=== PATIENT | female | born 1960 | race Caucasian/White ===

== ENCOUNTER 2024-05-03 18:36 | Emergency (ER) | payer MEDICARE, OTHER, SELFPAY ==
[2024-05-03 18:47] VITALS: BP 167/74
[2024-05-03 19:01] LABS: Glucose - Point of Care 113 mg/dl (70-99)
--- NOTE | 2024-05-03 19:02 | EDRN ---
Patient stated that she ran out of her Klonopin a couple of days ago and can't get it refilled until 05/05. Patient stated that she is allowed to take 'extra dose when I need it per my doctor.' when asked why she ran out of her medicine. Patient
then stated 'You are going to provide me a ride home. I was told by the ambulance that you will take me home.' Explained to the patient that the hospital does not have a transportation service that take people home. Patient stated 'I was told by the
tilt tray driver that you will get me home. How do people get home if they don't have a ride?' Explained to patient that people either find a ride home from family members or a friend or take Uber home. Some people take a wheelchair van home but
that needs to be paid for when it's set up by the patient. Patient insisting that the hospital needs to provide a ride home because she has no money and does not get paid to the 28th and g=her son does not have a car or have any money to pay for an
Uber for her. Patient stated 'I can't walk home. It's cold outside. I hope you don't think I am walking home.' Stated to patient that it was not expected that she would walk home or that someone said that she would have to walk home. Spoke to ED
sound cutter and notified him of transportation issue of getting home. Patient stated that she is a diabetic and only at half of her dinner because she was too anxious to eat. Accucheck 113. Patient given some annia crackers. Patient upset that no
one would see her immediately for her anxiety issues.
[2024-05-03 19:57] LABS: Glucose - Point of Care 142 mg/dl (70-99)
[2024-05-03 22:26] VITALS: BMI 37.5
[2024-05-03 22:27] VITALS: BP 156/66
[2024-05-03] MEDS: KLONOPIN 0.5 MG PO (22:55)
--- NOTE | 2024-05-03 23:08 | ED.GENMED ---
History of Present Illness
General
Chief Complaint: Anxiety
Source: patient
Exam Limitations: none
Time Seen by Provider: 05/03/24 22:26
Nursing documentation reviewed up to this point in time: agreed with
History of Present Illness
History of Present Illness:
Pleasant 64-year-old female who presents with anxiety attack. She states that for the last few days she has been without her Klonopin. She states that she gets a refill on May 05. Patient takes 0.5 mg of Klonopin p.o.
Past History
Past History
ED Past Medical History: Asthma, Fibromyalgia, Hypercholesterolemia, NIDDM, Hypothyroidism, Psychiatric and Other
ED Past Surgical History: Orthopedic (Carpal tunnel release)
Social History
Tobacco: Non-smoker
Alcohol: None
Drug: Narcotics (History of narcotic abuse in the past) and Other (substance abuse.)
Personal: ( September 2020 of COVID 19)
Living: with family
Employment: Not employed
Family History
Family History: Other (Noncontributory)
Review of Systems
Review of Systems
Allergies reviewed?: Yes
All Other Systems: ROS reviewed and negative except as documented in HPI and ROS
Constitutional: Reports no symptoms
EENT: Reports no symptoms
Respiratory: Reports no symptoms
Cardiac: Reports no symptoms
ABD/GI: Reports no symptoms
: Reports no symptoms
Musculoskeletal: Reports no symptoms
Skin: Reports no symptoms
Neurological: Reports no symptoms
Endocrine: Reports no symptoms
Hematologic/Lymphatic: Reports no symptoms
Psychiatric: Reports anxiety
Phy Exam
General Physical Exam
General Presentation: well appearing and no apparent distress
General Skin: warm and dry
General Habitus: normal
General Mental: alert
General Hydration: appears well hydrated
ENT Exam
ENT Exam: EOMI, pharynx normal, neck supple and normocephalic
Eye Exam
Eye Exam: PERRL, cornea clear and conjunctiva normal
Cardiovascular Exam
Cardiovascular Exam: regular rate/rhythm, no edema, no murmur and normal peripheral pulses
Pulmonary Exam
Pulmonary Exam: lungs clear, no respiratory distress, no rales, no crackles, no rhonchi, no stridor, no wheezing and no cough
Gastrointestinal Exam
Gastrointestinal Exam: normal bowel sounds, non tender, soft, no organomegaly, no pulsatile mass and non distended
Neurological Exam
Neurological Exam: alert, oriented x3, no motor deficits and speech normal
Musculoskeletal Exam
Musculoskeletal Exam: full ROM and no edema
Skin Exam
Skin Exam: normal color, warm/dry, no rash and no petechia
Psychiatric Exam
Psychiatric Exam: anxious
Course
Orders/Labs/Results
Orders:
Orders
05/03/24 22:52
Electrocardiogram (*1) Urgent
Reason for Study: Other
Other Reason for Exam: anxious
EKG- Treatment ONCE
Clonazepam [Klonopin] 0.5 mg PO NOW STA
Abnormal Lab Results
05/03/24 05/03/24
19:00 19:55
POC Glucose 113 H mg/dl 142 H mg/dl
(70-99) (70-99)
Vital Signs
Initial and Last Documented VS:
Initial Vital Signs
Temp Pulse Resp BP Pulse Ox
98.4 F 93 20 167/74 97
05/03/24 18:47 05/03/24 18:47 05/03/24 18:47 05/03/24 18:47 05/03/24 18:47
Last Documented Vital Signs
Temp Pulse Resp BP Pulse Ox
98.4 F 89 18 156/66 98
05/03/24 18:47 05/03/24 22:27 05/03/24 22:27 05/03/24 22:27 05/03/24 22:27
*Pulse Oximetry
Patient hypoxic: no
*Critical Care Note
Total Time (30-74mins, 75-104mins- exclusive of procedures): Not Applicable
ED Attending Note
-
Portions of this chart may have been created with voice recognition software.� Occasional wrong word or��sound alike� substitutions may have occurred due to the inherent limitations of voice recognition software.
Discharge Plan
Departure
Patient Disposition: Home (Routine Discharge)
Date of Disposition: 05/03/24
Time of Disposition: 23:10
Patient with high blood pressure during this ER visit?: Yes
Condition: Good
Discharge Problem:
Anxiety attack
Instructions: Anxiety, Adult (DC), BLOOD PRESSURE
Prescriptions:
New
clonazepam [Klonopin] 0.5 mg tablet
0.5 mg PO BID Qty: 6 0RF
No Action
ibuprofen 600 MG tablet
600 mg PO Q6H
simvastatin 20 MG tablet
20 mg PO QPM
escitalopram oxalate 20 MG tablet
20 mg PO DAILY
metformin 500 mg Tablet
1,000 mg PO DAILY
levothyroxine [Synthroid] 137 mcg Tablet
137 mcg PO DAILY
insulin glargine [Lantus U-100 Insulin] 100 unit/mL Solution
12 unit SC QPM
Referrals:
Ashley Escobar DO [Family Provider] -
Activity Restrictions/Additional Instructions:
As discussed this is a one-time courtesy. Please discuss your prescription with your physician.
It was a pleasure meeting you and taking part in your care. We hope for your continued healing and wellness.
Please read discharge instructions in their entirety. However, they are for general education and may not describe your exact diagnosis at discharge. Information on your ER visit and medical conditions were discussed with you along with appropriate
follow up information...
If indicated, please take your medications as instructed and indicated on discharge paperwork.
Please schedule a follow up appointment as directed. Call to schedule an appointment
Please return to the emergency department with ANY change in, persisting, or worsening of symptoms. If any of your symptoms do not improve, or persist, or become more severe within 6-12 hours, please return to the emergency department for further
care.
Please return to the emergency department if you develop a headache, neck pain/stiffness, fever greater than 100.4F, chest pain, shortness of breath, persistent nausea, vomiting, slurred speech, difficulty walking, numbness/tingling, weakness, signs
of infection or any other symptoms that are worrisome to you.
If you have any questions or concerns please do not hesitate to call the Hospital at or E-mail me directly at [email or web address]
Interventions
Interventions:
*Risk Screen - Suicide Last Done: 05/03/24 18:47
*General Assessment Last Done: 05/03/24 22:28
*Neglect/Abuse Screening Last Done: 05/03/24 18:47
ED- Fall Risk Assessment Last Done: 05/03/24 22:29
*ED COVID-19 Vaccine History Last Done: 05/03/24 18:53
ED-Psychological Assessment Last Done: 05/03/24 22:30
Discharge Date and Time
Print Language: PERSIAN
== END 2024-05-03 23:23 | disposition home or self-care (01) ==
LOC: EMR 18:36
PROVIDERS: EMERGENCY PHYSICIAN Student in an Organized Health Care Education/Training Program; FAMILY PHYSICIAN Family Medicine
DX: F41.9 Anxiety disorder, unspecified (principal); R03.0 Elevated blood-pressure reading, without diagnosis of hypertension; E03.9 Hypothyroidism, unspecified; Z91.148 Patient's other noncompliance with medication regimen for other reason; E78.00 Pure hypercholesterolemia, unspecified; J45.909 Unspecified asthma, uncomplicated; M79.7 Fibromyalgia; E11.40 Type 2 diabetes mellitus with diabetic neuropathy, unspecified; K21.9 Gastro-esophageal reflux disease without esophagitis; F31.9 Bipolar disorder, unspecified; F32.A Depression, unspecified; Z87.891 Personal history of nicotine dependence; Z79.4 Long term (current) use of insulin; Z88.8 Allergy status to other drugs, medicaments and biological substances
CPT/HCPCS: 99283; 82962; 93005

== ENCOUNTER 2024-07-26 01:12 | Emergency (ER) | payer MEDICARE, OTHER, SELFPAY ==
[2024-07-26 01:20] VITALS: BP 115/82
[2024-07-26 01:40] LABS: % Basophils 0.7 % (0-2); % Eosinophils 3.2 % (0-6); % Immature Granulocytes 0.3 % (0-0.5); % Lymphocytes 33.5 % (20.5-51.1); % Monocytes 6.2 % (1.7-9.3); % Neutrophils 56.1 % (42.2-75.2); Absolute Basophils 0.1 10^3/uL (0-0.2); Absolute Eosinophils 0.2 10^3/uL (0-0.7); Absolute Lymphocytes 2.3 10^3/uL (1.2-3.4); Absolute Monocytes 0.4 10^3/uL (0.1-0.6); Absolute Neutrophils 3.9 10^3/uL (1.4-6.5); Hematocrit 34.7 % (37.0-47.0); Hemoglobin 11.7 g/dL (12.0-16.0); Mean Corp Hgb Conc. 33.7 g/dL (33.0-37.0); Mean Platelet Volume 9.8 fL (7.4-10.4); Nucleated Red Blood Cells % 0 %; Platelet Count 271 10^3/uL (130-400); Red Cell Dist. Width 13.2 % (11.5-14.5); White Blood Cell Count 6.9 10^3/uL (4.8-10.8)
[2024-07-26 02:04] LABS: ALT (SGPT) 34 U/L (0-35); AST (SGOT) 23 U/L (14-36); Albumin 3.6 g/dl (3.5-5.0); Alkaline Phosphatase 149 U/L (38-126); Blood Urea Nitrogen 19 mg/dl (7-17); Calcium 9.4 mg/dl (8.4-10.2); Carbon Dioxide 27 mmol/L (22-30); Chloride 105 mmol/L (98-107); Glucose 349 mg/dl (70-99); Potassium 4.3 mmol/L (3.5-5.1); Sodium 139 mmol/L (135-145); Total Bilirubin 0.4 mg/dl (0.2-1.3); Total Protein 6.4 g/dl (6.3-8.2); eGFR > 60.00
[2024-07-26 02:11] LABS: B-Hydroxybutyrate 0.08 mmol/L (0.02-0.27)
[2024-07-26 04:39] VITALS: BMI 39.3
[2024-07-26 04:40] VITALS: BP 130/82
[2024-07-26 04:43] LABS: Glucose - Point of Care 215 mg/dl (70-99)
--- NOTE | 2024-07-26 05:04 | ED.GENMED ---
History of Present Illness
General
Chief Complaint: Blood Sugar Problem
Source: patient
Exam Limitations: none
Time Seen by Provider: 07/26/24 04:29
Nursing documentation reviewed up to this point in time: agreed with
History of Present Illness
History of Present Illness:
64-year-old female presenting to the emergency department today with concerns of elevated blood sugar at home. Denies any significant symptoms otherwise. Patient does take metformin and Lantus.
Past History
Past History
ED Past Medical History: Asthma, Fibromyalgia, Hypercholesterolemia, NIDDM, Hypothyroidism, Psychiatric and Other
ED Past Surgical History: Orthopedic (Carpal tunnel release)
Social History
Tobacco: Non-smoker
Alcohol: None
Drug: Narcotics (History of narcotic abuse in the past) and Other (substance abuse.)
Personal: ( September 2020 of COVID 19)
Living: with family
Employment: Not employed
Family History
Family History: Other (Noncontributory)
Review of Systems
Review of Systems
Allergies reviewed?: Yes
All Other Systems: ROS reviewed and negative except as documented in HPI and ROS
Phy Exam
Physical Exam
Physical Exam:
GENERAL: Alert , in no apparent distress
EYE: pupils equal and reactive
NECK: Supple, no significant adenopathy.
ENT: o/p clr, mmm.
CARDIAC: Regular rate and rhythm .
LUNGS: Clear breath sounds bilaterally, no acute respiratory distress, no wheezes/rales/rhonchi
ABDOMEN: Soft, without focal tenderness, no r/g, no cvat
NEUROLOGICAL: Alert and oriented, no focal neuro deficits
SKIN: Warm and dry, skin intact.
MUSCULOSKELETAL: No edema, well perfused.
PSYCH: Normal and appropriate interaction.
Course
Orders/Labs/Results
Orders:
Orders
07/26/24 01:29
B-Hydroxybutyrate Urgent
Complete Blood Count/With Diff Urgent
Comprehensive Metabolic Panel Urgent
07/26/24 04:20
Bedside Glucose- Treatment ONCE
Abnormal Lab Results
07/26/24 07/26/24
01:29 04:40
RBC 3.90 L 10^6/uL
(4.20-5.40)
Hgb 11.7 L g/dL
(12.0-16.0)
Hct 34.7 L %
(37.0-47.0)
BUN 19 H mg/dl
(7-17)
Glucose 349 H mg/dl
(70-99)
Alkaline Phosphatase 149 H U/L
(38-126)
POC Glucose 215 H mg/dl
(70-99)
07/26/24 01:29
07/26/24 01:29
Vital Signs
Initial and Last Documented VS:
Initial Vital Signs
Temp Pulse Resp BP Pulse Ox
98.4 F 76 20 115/82 100
07/26/24 01:20 07/26/24 01:20 07/26/24 01:20 07/26/24 01:20 07/26/24 01:20
Last Documented Vital Signs
Temp Pulse Resp BP Pulse Ox
98.4 F 70 18 130/82 98
07/26/24 01:20 07/26/24 04:40 07/26/24 04:40 07/26/24 04:40 07/26/24 04:40
MDM/Problems Addressed
MDM/Problems Addressed:
64-year-old female presenting with concerns of elevated blood sugar level. Here sugar level of 349. No evidence of DKA normal anion gap normal beta hydroxybutyrate. Repeated glucose level after drinking water was 215. Stable for discharge no
signs of emergent process advised for close outpatient follow-up.
*Critical Care Note
Total Time (30-74mins, 75-104mins- exclusive of procedures): Not Applicable
ED Attending Note
-
Portions of this chart may have been created with voice recognition software.� Occasional wrong word or��sound alike� substitutions may have occurred due to the inherent limitations of voice recognition software.
Discharge Plan
Departure
Patient Disposition: Home (Routine Discharge)
Date of Disposition: 07/26/24
Time of Disposition: 05:05
Patient with high blood pressure during this ER visit?: No
Condition: Good
Covid-19: Not Applicable
Discharge Problem:
Hyperglycemia
Instructions: Type 2 Diabetes (DC)
Prescriptions:
No Action
ibuprofen 600 MG tablet
600 mg PO Q6H
simvastatin 20 MG tablet
20 mg PO QPM
escitalopram oxalate 20 MG tablet
20 mg PO DAILY
metformin 500 mg Tablet
1,000 mg PO DAILY
levothyroxine [Synthroid] 137 mcg Tablet
137 mcg PO DAILY
insulin glargine [Lantus U-100 Insulin] 100 unit/mL Solution
12 unit SC QPM
clonazepam [Klonopin] 0.5 mg tablet
0.5 mg PO BID Qty: 6 0RF
Activity Restrictions/Additional Instructions:
You came to the emergency department today with concerns of elevated sugar level. No signs of complications here. Please follow-up closely with your primary care doctor. Return for any worsening, new or concerning symptoms.
Interventions
Interventions:
*Risk Screen - Suicide Last Done: 07/26/24 01:18
*General Assessment Last Done: 07/26/24 04:51
*Neglect/Abuse Screening Last Done: 07/26/24 01:18
*ED- Fall Risk Assessment Last Done: 07/26/24 04:51
*ED COVID-19 Vaccine History Last Done: 07/26/24 04:51
Discharge Date and Time
Print Language: GUYANESE
== END 2024-07-26 05:46 | disposition home or self-care (01) ==
LOC: EMR 01:12
PROVIDERS: Emergency Medicine; EMERGENCY PHYSICIAN Emergency Medicine; FAMILY PHYSICIAN Physician Assistant
DX: E11.65 Type 2 diabetes mellitus with hyperglycemia (principal)
CPT/HCPCS: 99283; 80053; 82010; 82962; 85025

== ENCOUNTER 2024-07-26 11:34 | Emergency (ER) | payer MEDICARE, OTHER, SELFPAY ==
[2024-07-26 11:37] VITALS: BP 120/79
[2024-07-26] MEDS: ZOFRAN ODT (ORALLY DISINTEGRATING) 4 MG PO (11:45)
[2024-07-26 12:04] LABS: % Basophils 0.9 % (0-2); % Eosinophils 3.5 % (0-6); % Immature Granulocytes 0.4 % (0-0.5); % Monocytes 5.8 % (1.7-9.3); % Neutrophils 67.4 % (42.2-75.2); Absolute Basophils 0.1 10^3/uL (0-0.2); Absolute Eosinophils 0.3 10^3/uL (0-0.7); Absolute Lymphocytes 1.7 10^3/uL (1.2-3.4); Absolute Monocytes 0.5 10^3/uL (0.1-0.6); Absolute Neutrophils 5.3 10^3/uL (1.4-6.5); Hematocrit 35.9 % (37.0-47.0); Hemoglobin 11.9 g/dL (12.0-16.0); Mean Corp Hgb Conc. 33.1 g/dL (33.0-37.0); Mean Corpuscular Hgb 29.3 pg (27.0-31.0); Mean Corpuscular Volume 88.4 fL (81.0-99.0); Mean Platelet Volume 9.7 fL (7.4-10.4); Nucleated Red Blood Cells % 0 %; Platelet Count 278 10^3/uL (130-400); Red Blood Cell Count 4.06 10^6/uL (4.20-5.40); Red Cell Dist. Width 13.1 % (11.5-14.5); White Blood Cell Count 7.8 10^3/uL (4.8-10.8)
[2024-07-26 12:24] LABS: ALT (SGPT) 33 U/L (0-35); AST (SGOT) 24 U/L (14-36); Albumin 4.2 g/dl (3.5-5.0); Alkaline Phosphatase 173 U/L (38-126); Blood Urea Nitrogen 15 mg/dl (7-17); Calcium 9.4 mg/dl (8.4-10.2); Carbon Dioxide 22 mmol/L (22-30); Chloride 110 mmol/L (98-107); Glucose 307 mg/dl (70-99); Potassium 4.4 mmol/L (3.5-5.1); Sodium 138 mmol/L (135-145); Total Bilirubin 0.5 mg/dl (0.2-1.3); Total Protein 7.1 g/dl (6.3-8.2); eGFR > 60.00
[2024-07-26 13:12] LABS: Lipase 150 U/L (23-300)
[2024-07-26 13:20] LABS: B-Hydroxybutyrate 0.11 mmol/L (0.02-0.27)
--- NOTE | 2024-07-26 14:40 | EDRN ---
Aydin PRIETO in room w /pt at this time.
--- NOTE | 2024-07-26 14:54 | ED.GENMED ---
History of Present Illness
General
Chief Complaint: Blood Sugar Problem
Source: patient
Exam Limitations: none
Time Seen by Provider: 07/26/24 14:31
History of Present Illness
History of Present Illness:
64yoF with a history of insulin dependent diabetes presenting for evaluation of elevated blood sugars. Patient was seen in the ED earlier today for the same. Glucose was 349 at that time. Patient did have some vomiting earlier and vomited 4
times throughout the day. Patient called her special effects makeup artist who told her to go to the ED for evaluation. She currently takes metformin, 9 units short acting insulin with meals, and 12 units of long acting insulin at nighttime. Her
special effects makeup artist told her to increase her mealtime insulin to 12 units due to her elevated blood sugar. She denies any fevers, chest pain, shortness of breath, diarrhea, dysuria. Of note, patient recently started using a Dexcom about 1 week ago.
Past History
Past History
ED Past Medical History: Asthma, Fibromyalgia, Hypercholesterolemia, NIDDM, Hypothyroidism, Psychiatric and Other
ED Past Surgical History: Orthopedic (Carpal tunnel release)
Social History
Tobacco: Non-smoker
Alcohol: None
Drug: Narcotics (History of narcotic abuse in the past) and Other (substance abuse.)
Personal: ( September 2020 of COVID 19)
Living: with family
Employment: Not employed
Family History
Family History: Other (Noncontributory)
Phy Exam
General Physical Exam
General Presentation: well appearing and no apparent distress
General Skin: warm and dry
General Habitus: normal
General Mental: alert
ENT Exam
ENT Exam: TM's normal, pharynx normal and normocephalic
Cardiovascular Exam
Cardiovascular Exam: regular rate/rhythm
Pulmonary Exam
Pulmonary Exam: lungs clear, no respiratory distress, no rales, no crackles, no rhonchi and no wheezing
Gastrointestinal Exam
Gastrointestinal Exam: non tender, soft and non distended
Neurological Exam
Neurological Exam: alert
[place] Coma Scale
Eye Opening: Spontaneous
Verbal Response: Oriented
Motor Response: Obeys Commands
GCS Total Score: 15
Skin Exam
Skin Exam: normal color and warm/dry
Psychiatric Exam
Psychiatric Exam: normal mood/affect
Course
Orders/Labs/Results
Orders:
Orders
07/26/24 11:43
Ondansetron Orally Disint [Zofran Odt (Orally Disintegrating)] 4 mg PO NOW STA
07/26/24 11:44
Ondansetron Orally Disint [Zofran Odt (Orally Disintegrating)] 4 mg .ROUTE .STK-MED ONE
07/26/24 11:55
B-Hydroxybutyrate Urgent
Complete Blood Count/With Diff Urgent
Comprehensive Metabolic Panel Urgent
Lipase Urgent
Abnormal Lab Results
07/26/24
11:55
RBC 4.06 L 10^6/uL
(4.20-5.40)
Hgb 11.9 L g/dL
(12.0-16.0)
Hct 35.9 L %
(37.0-47.0)
Chloride 110 H mmol/L
(98-107)
Glucose 307 H mg/dl
(70-99)
Alkaline Phosphatase 173 H U/L
(38-126)
07/26/24 11:55
07/26/24 11:55
Vital Signs
Initial and Last Documented VS:
Initial Vital Signs
Temp Pulse Resp BP Pulse Ox
98.3 F 104 18 120/79 98
07/26/24 11:37 07/26/24 11:37 07/26/24 11:37 07/26/24 11:37 07/26/24 11:37
Last Documented Vital Signs
Temp Pulse Resp BP Pulse Ox
98.3 F 81 16 150/95 96
07/26/24 11:37 07/26/24 15:10 07/26/24 15:10 07/26/24 15:10 07/26/24 15:10
MDM/Problems Addressed
Differential Diagnosis Includes:
64yoF here with elevated blood sugar. Seen here earlier today for the same. Had some vomiting earlier but is now feeling better and requesting to drink. She is well appearing in no distress. Differential diagnosis includes: hyperglycemia,
gastroenteritis, dehydration, DKA
Labs obtained. Glucose 307. Bicarb and anion gap normal. Patient not meeting criteria for DKA. No evidence of dehydration on labs and patient is tolerating PO fluids. Dexcom shows that her glucose is 249 on assessment. No indication for
hospitalization. Her special effects makeup artist increased her mealtime insulin earlier today from 9 units and 12 units. Prescription provided for Zofran. Discussed importance of outpatient f/u. ED return precautions reviewed. Patient in agreement with plan and
she was discharged in stable condition.
*Critical Care Note
Total Time (30-74mins, 75-104mins- exclusive of procedures): Not Applicable
ED Attending Note
-
Portions of this chart may have been created with voice recognition software.� Occasional wrong word or��sound alike� substitutions may have occurred due to the inherent limitations of voice recognition software.
Discharge Plan
Departure
Patient Disposition: Home (Routine Discharge)
Date of Disposition: 07/26/24
Time of Disposition: 14:57
Patient with high blood pressure during this ER visit?: No
Discharge Problem:
Hyperglycemia, Nausea and vomiting
Instructions: Type 2 Diabetes (DC), Acute Nausea and Vomiting
Prescriptions:
New
ondansetron 4 mg tablet,disintegrating
4 mg PO Q6H PRN (Reason: nausea and vomiting) Qty: 20 0RF
No Action
ibuprofen 600 MG tablet
600 mg PO Q6H
simvastatin 20 MG tablet
20 mg PO QPM
escitalopram oxalate 20 MG tablet
20 mg PO DAILY
metformin 500 mg Tablet
1,000 mg PO DAILY
levothyroxine [Synthroid] 137 mcg Tablet
137 mcg PO DAILY
insulin glargine [Lantus U-100 Insulin] 100 unit/mL Solution
12 unit SC QPM
clonazepam [Klonopin] 0.5 mg tablet
0.5 mg PO BID Qty: 6 0RF
Activity Restrictions/Additional Instructions:
Take Zofran as needed for nausea. Drink plenty of fluids. Increase your insulin dose as instructed by your special effects makeup artist.
Please follow-up with your family doctor and special effects makeup artist. Return to the ER with any new or worsening symptoms.
Interventions
Interventions:
*Risk Screen - Suicide Last Done: 07/26/24 11:41
*General Assessment Last Done: 07/26/24 15:05
*Neglect/Abuse Screening Last Done: 07/26/24 11:41
*ED- Fall Risk Assessment Last Done: 07/26/24 15:05
*ED COVID-19 Vaccine History Last Done: 07/26/24 15:05
*Nursing Disposition Last Done: 07/26/24 15:14
ED- Neurological Assessment Last Done: 07/26/24 15:06
Discharge Date and Time
Discharge Date/Time: 07/26/24 15:15
Print Language: ESTONIAN
[2024-07-26 15:05] VITALS: BMI 37.8
[2024-07-26 15:10] VITALS: BP 150/95
== END 2024-07-26 15:15 | disposition home or self-care (01) ==
LOC: EMR 11:34
PROVIDERS: EMERGENCY PHYSICIAN Emergency Medicine
DX: E11.65 Type 2 diabetes mellitus with hyperglycemia (principal); R11.2 Nausea with vomiting, unspecified; Z79.4 Long term (current) use of insulin
CPT/HCPCS: 99283; 80053; 82010; 83690; 85025